=== PATIENT | female | born 1945 | race Asian ===

== ENCOUNTER 2018-08-15 05:49 | Day surgery (SDC) | payer OTHER ==
[2018-08-15] MEDS ORDERED: MIDAZOLAM 1 MG/ML 2 ML INJ (07:54)
[2018-08-15] MEDS ORDERED: LIDOCAINE 2% (SDV) 5 ML INJ (07:54)
[2018-08-15] MEDS ORDERED: PROPOFOL 40 ML (07:54)
[2018-08-15] MEDS ORDERED: FENTAnyl 50 MCG/ML VIAL (07:54)
== END 2018-08-15 11:10 | disposition home or self-care (01) ==
LOC: GIL 05:49
DX: Z12.11 Encounter for screening for malignant neoplasm of colon (principal); D12.3 Benign neoplasm of transverse colon; K64.8 Other hemorrhoids; K57.30 Diverticulosis of large intestine without perforation or abscess without bleeding; I10 Essential (primary) hypertension; E11.9 Type 2 diabetes mellitus without complications
CPT/HCPCS: 45380; 82962; 88305